=== PATIENT | female | born 1945 | race Caucasian/White ===

== ENCOUNTER 2024-07-12 15:30 | Outpatient (RCR) | payer OTHER, SELFPAY ==
--- NOTE | 2024-06-13 16:38 | OPREHPOC ---
Outpatient Therapy Plan of Care This is a Multidisciplinary Plan of Care that may contain components documented by all disciplines (PT, OT, and ST.) PT Problem 1 PT Problem #1 Knowledge Deficit PT Goal 1 Goal / Goal Update Pt to be IND with issued HEP. PT Problem 2 PT Problem #2 Pain PT Goal 1 Goal / Goal Update 1. pt to report hip pain no greater than 3/10 in the last week. 2. Pt to report 75% improvement in overall symptoms. 3. Pt to be able to tolerate 10 mins of walking without an increase in pain. Target Visit 8 PT Problem 3 PT Problem #3 Impaired Range of Motion PT Goal 1 Goal / Goal Update Pt to demonstrate symmetrical passive hip rotation ROM to be able to put her shoes on.
--- NOTE | 2024-06-13 16:38 | PTOPEVAL1 ---
Assessment and note entered by Lennie Duran, PT, DPT Evaluation Information Assessment Status Evaluation Diagnosis R hip bursitis and lumbar spondylosis ICD-10 Condition Codes (PT) Pain in low back M54.50,Pain in right hip M25.551 Subjective Information Pt states R lower back and groin pain that is present most of the time when in standing. This pain started a couple of months ago. She also reports lateral R hip pain that is tender to the touch. She states when she went to see ortho she was limping terribly but it has gotten somewhat better on its own. She reports advanced lower back arthritis. Reported Pain Level Pain Score 5: Self Report Assessment PT Clinical Summary Pt presents to therapy today for her initial evaluation with a diagnosis of R hip bursitis and lumbar spondylosis. Today she demonstrates piriformis tightness, global hip weakness, and decreased R hip ROM when compared to her L hip. She reports decreased standing tolerance. Demonstrates pelvic asymmetry at evaluation but this was corrected with muscle energy techniques. Skilled therapy services are indicated to address the deficits noted above, to manage pain, and to return to prior level of function. Plan of Care Interventions Electrical Stimulation,Gait Training,Hot Pack/Cold Pack,Manual Therapy,Neuro Re-education,Patient/ Caregiver Educati,Therapeutic Activities, Therapeutic Exercise PT Services Indicated Yes Treatment Frequency and 1x/wk for 6 visits Duration These treatments will address the objective and functional deficits as defined above. The patient will be advanced safely and appropriately in order for the patient to progress towards his/her prior level of function. Additional exercises will be introduced and as well as a comprehensive home exercise program upon discharge, if needed, ?to ensure carryover of functional gains achieved in the clinic. This treatment plan has been reviewed and agreement upon by the patient.
--- NOTE | 2024-06-28 09:14 | PCPTNOTE ---
Patient canceled appointment for 06/28/24 due to being out of town.
--- NOTE | 2024-07-12 16:04 | OPREHPOC ---
Outpatient Therapy Plan of Care This is a Multidisciplinary Plan of Care that may contain components documented by all disciplines (PT, OT, and ST.) PT Problem 1 PT Problem #1 Knowledge Deficit PT Goal 1 Goal / Goal Update Pt to be IND with issued HEP. Progress Met PT Problem 2 PT Problem #2 Pain PT Goal 1 Goal / Goal Update 1. pt to report hip pain no greater than 3/10 in the last week. 2. Pt to report 75% improvement in overall symptoms. 3. Pt to be able to tolerate 10 mins of walking without an increase in pain. 07/12/24: 1-3. progressing Target Visit 8 PT Problem 3 PT Problem #3 Impaired Range of Motion PT Goal 1 Goal / Goal Update Pt to demonstrate symmetrical passive hip rotation ROM to be able to put her shoes on. 07/12/24: met
--- NOTE | 2024-07-12 16:05 | PTOPDC ---
Assessment and note entered by Lennie Duran, PT, DPT Evaluation Information Assessment Status Discharge Diagnosis R hip bursitis and lumbar spondylosis ICD-10 Condition Codes (PT) Pain in low back M54.50,Pain in right hip M25.551 Subjective Information Pt states overall she feels like she is improving. She states she has good days and bad days still, but overall more good days. She has incorporated her HEP into her daily routine. Reported Pain Level Pain Score 0: Self Report Assessment PT Clinical Summary Pt has completed 4 visits of skilled therapy. She demonstrates increased hip ROM with decreased pain reports. She has met or progressed well towards her therapy goals and no longer requires skilled services. She will be d/c'ed at this time to continue her HEP. Plan of Care PT Services Indicated No
== END 2024-07-13 08:46 | disposition home or self-care (01) ==
LOC: ANHGOSHPT 15:30
PROVIDERS: PCP Family Medicine; Visit Provider Orthopaedic Surgery
DX: M70.61 Trochanteric bursitis, right hip (principal); M47.816 Spondylosis without myelopathy or radiculopathy, lumbar region
CPT/HCPCS: 97110; 97161